=== PATIENT | male | born 1985 | race Caucasian/White ===

== ENCOUNTER 2025-06-15 20:42 | Emergency (ER) | payer SELFPAY ==
[2025-06-15 20:56] VITALS: BP 120/87; PULSE 108; TEMP 37.4; O2SAT 97; BMI 29.3
[2025-06-15 21:36] LABS: SARS-CoV-2 Ag NEGATIVE (NEGATIVE)
[2025-06-15] MEDS: METHYLPREDNISOLONE SOD SUCC PF 125 MG/2 ML VIAL IM (21:36)
--- NOTE | 2025-06-15 21:53 | ED.GENADUL1 ---
HPI HPI - General Adult General Chief complaint: Upper Respiratory Infection Stated complaint: THROAT FEELS REAL SWOLLEN/ HEADACHE Time Seen by Provider: 06/15/25 21:08 Source: patient Mode of arrival: walk-in Limitations: no limitations History of Present Illness HPI narrative: cc - sore throat Patient states he woke this morning with throat pain that has progressively worsened throughout the day. Now he complains of the throat to start to feel as if it is swollen and more painful to talk and swallow. He took some Zyrtec and also took some ibuprofen without any improvement. He denies any recent travel and denies any known ill exposure. No fever or chills. No runny nose, ear pain, cough, GI or symptoms. No injury to the throat or neck. Related Data Previous Rx's ?Medication ?Instructions ?Recorded clindamycin HCl 150 mg capsule 450 mg (3 x 150 mg) PO TID 7 days 06/15/25 #63 caps Allergies Allergy/AdvReac Type Severity Reaction Status Date / Time No Known Drug Allergies Allergy Verified 06/15/25 20:55 Opioid HPI Opioid Management Most Recent Opioid Data: Last Pain Scale 7 Today, 20:56 PFSH PFSH Social History Little interest or pleasure in doing things: not at all Feeling down, depressed, or hopeless: not at all Exam Narrative Exam Narrative: Nurses notes and vital signs reviewed and patient is not hypoxic. afebrile General: Well-appearing and in no apparent distress. Skin: Warm, dry, no pallor noted. No rash. Head: Normocephalic, atraumatic. Neck: Supple, tender anterior lower lymphadenopathy. No meningismus. No palpable mass. No Trent's angina. Eye: Pupils are equal, round and EOMI. No scleral icterus. Ears, Nose, Mouth, and Throat: TM are clear, no nasal mucosal hypertrophy. Moderate posterior oropharynx erythema with some tonsillar swelling and mild uvular swelling but uvula is mid-line. Some scattered exudates noted. Oral mucosa is moist Cardiovascular: Tachycardic. Respiratory: No accessory muscle use or respiratory distress. Lungs are clear to auscultation, no wheezing, rales or rhonchi Musculoskeletal: normal ROM Neurological: A&O x4. No cranial nerve dysfunction observed. No truncal ataxia. Moves all extremities. Sensation intact. Psychiatric: Cooperative and interactive. Normal mood and affect. Constitutional Vital Signs, click to edit/add: Last Vital Signs Temp 99.3 F 06/15/25 20:56 Pulse 108 H 06/15/25 20:56 Resp 14 06/15/25 20:56 BP 120/87 06/15/25 20:56 Pulse Ox 97 06/15/25 20:56 O2 Del Method Room Air 06/15/25 20:56 Course Vital Signs Vital signs: Vital Signs Temperature 99.3 F 06/15/25 20:56 Pulse Rate 108 H 06/15/25 20:56 Respiratory Rate 14 06/15/25 20:56 Blood Pressure 120/87 06/15/25 20:56 Pulse Oximetry 97 06/15/25 20:56 Oxygen Delivery Method Room Air 06/15/25 20:56 Temperature 99.3 F 06/15/25 20:56 Pulse Rate 108 H 06/15/25 20:56 Respiratory Rate 14 06/15/25 20:56 Blood Pressure 120/87 06/15/25 20:56 Pulse Oximetry 97 06/15/25 20:56 Oxygen Delivery Method Room Air 06/15/25 20:56 Medical Decision Making MDM Narrative Medical decision making narrative: Swabs for both COVID and strep were negative. I would still like to prophylactically treat this patient with antibiotics and therefore he will be started on clindamycin. He did receive IM Solu-Medrol in the ED to address the pharyngeal swelling that I noted. His airway is not impinged and he is in no immediate risk of respiratory compromise. He will also be prescribed BMX solution to help with some of the throat swelling and pain. Lab Data Lab results reviewed: Yes I reviewed the patient's lab results Labs: Lab Results 06/15/25 Range/Units 21:05 SARS-CoV-2 Ag (CV2AG) Negative (NEGATIVE) Streptococcus Screen Negative Discharge Plan Discharge Chief Complaint: Upper Respiratory Infection Clinical Impression: Pharyngitis Patient Disposition: Home, Self-Care Time of Disposition Decision: 21:58 Prescriptions / Home Meds: New clindamycin HCl 150 mg capsule 450 mg PO TID 7 Days Qty: 63 0RF Print Language: Swedish Instructions: Pharyngitis (ED) Additional Instructions: Pt was also given a hand written Rx for BMX solution Referrals: Physician,Non-Staff, MD [Primary Care Provider] - 1 week
[2025-06-15] MEDS: CLINDAMYCIN HCL 150 MG CAPSULE 450 MG PO (22:25)
== END 2025-06-15 22:19 | disposition home or self-care (01) ==
PROVIDERS: Emergency Provider Emergency Medicine
DX: J02.9 Acute pharyngitis, unspecified (principal)
CPT/HCPCS: 87070; 87811; 87880; 96372; 99285; J2919